=== PATIENT | male | born 2000 | race Caucasian/White ===

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

== ENCOUNTER 2020-04-25 09:24 | Emergency (ER) | payer MEDICAID ==
[~2020-04-25] VITALS: Ht 188 cm; Wt 90.7 kg
[2020-04-25] MEDS ORDERED: NAPROSYN500 MG PO (10:27)
[2020-04-25 10:40] VITALS: BP 134/77
== END 2020-04-25 10:40 | disposition home or self-care (01) ==
LOC: M.ERS 09:24
DX: M23.91 Unspecified internal derangement of right knee (principal)